=== PATIENT | female | born 1980 | race Caucasian/White ===

== ENCOUNTER 2022-07-01 13:37 | Emergency (ER) | payer OTHER ==
[2022-07-01 13:55] VITALS: TEMP 98.1
[2022-07-01] MEDS ORDERED: IBUPROFEN 400 MG TAB PO STA (14:09)
[2022-07-01 14:35] VITALS: PULSE 68; RESP 16
--- NOTE | 2022-07-01 14:54 | XR ---
EXAMINATION TYPE: XR chest 2V DATE OF EXAM: 07/01/2022 COMPARISON: CTA chest November 28, 2013 HISTORY: Cough. TECHNIQUE: Frontal and lateral views of the chest are obtained. FINDINGS: Overlying Bra strap. There is no suspicious focal air space opacity, pleural effusion, or p neumothorax seen. The cardiac silhouette size remains within normal limits. The osseous structures are intact. IMPRESSION: No acute pulmonary infiltrate.
[2022-07-01] MEDS ORDERED: dexAMETHasone 4 MG TAB PO STA (15:34)
[2022-07-01] MEDS ORDERED: AZITHROMYCIN 500 MG TAB PO STA (15:34)
--- NOTE | 2022-07-01 15:41 | ED ---
General Adult HPI - General Chief complaint: Upper Respiratory Infection Stated complaint: URI Time Seen by Provider: 07/01/22 15:15 Source: patient, RN notes reviewed, old records reviewed Mode of arrival: ambulatory Limitations: no limitations - History of Present Illness Initial comments: Patient is a 41-year-old female with past medical history remarkable for psychiatric illness, migraines who presents emergency Department complaining of a four-day history of upper history symptoms. This includes a nasal congestion, mildly productive cough. Denies any sore throat or fevers. Denies any known sick contacts. Was vaccinated. Covid. Denies any chest pain, abdominal pain, nausea, vomiting. No other acute complaints at this time. To go home Covid test was negative. Presents for further evaluation. On a side note, patient also is now out of her home Clonopin. She is requesting a short-term prescription to help her ween off as her PCP is no longer seeing patients. Denies any withdrawal symptoms. - Related Data Home Medications Medication Instructions Recorded Confirmed Levothyroxine Sodium [Levoxyl] 50 mcg PO DAILY 05/15/15 05/15/15 Montelukast Sodium [Singulair] 10 mg PO HS 05/15/15 05/15/15 Nitrofurantoin Monohyd/M-Cryst 100 mg PO Q12HR 05/15/15 05/15/15 [Macrobid] Sertraline HCl [Zoloft] 100 mg PO BID 05/15/15 05/15/15 Zolpidem Tartrate [Ambien] 10 mg PO HS 05/15/15 05/15/15 clonazePAM [KlonoPIN] 1 mg PO TID 05/15/15 05/15/15 Atorvastatin [Lipitor] 20 mg PO DAILY 07/01/22 07/01/22 Butalb/APAP/Caff 50-325-40Mg 1 - 2 tab PO Q4H PRN 07/01/22 07/01/22 [Fioricet 50-325-40] Loratadine [Claritin] 10 mg PO DAILY 07/01/22 07/01/22 Metoprolol Succinate (ER) [Toprol 50 mg PO DAILY 07/01/22 07/01/22 Xl] Omeprazole 40 mg PO DAILY 07/01/22 07/01/22 Rivaroxaban [Xarelto] 2.5 mg PO BID 07/01/22 07/01/22 buPROPion SR [Wellbutrin SR] 150 mg PO DAILY 07/01/22 07/01/22 cloNIDine HCL [Catapres] 0.1 mg PO AC-TID 07/01/22 07/01/22 Previous Rx's Medication Instructions Recorded Azithromycin [Zithromax] 250 mg PO DAILY 4 Days #4 tab 07/01/22 clonazePAM [KlonoPIN] 1 mg PO DAILY 3 Days #3 tablet 07/01/22 Allergies Allergy/AdvReac Type Severity Reaction Status Date / Time Sulfa (Sulfonamide AdvReac Nausea & Verified 07/01/22 15:23 Antibiotics) Vomiting & Diarrhea Review of Systems ROS Statement: Those systems with pertinent positive or pertinent negative responses have been documented in the HPI. Review of Systems: CONST: Denies fever EYES: Denies blurry vision ENT: Endorses nasal congestion C/V: Denies Chest pain RESP: Denies shortness of breath GI: Denies abdominal pain : Denies dysuria SKIN: Denies rash. MSK: Denies joint pain. NEURO: Denies headache ROS Other: All systems not noted in ROS Statement are negative. Past Medical History Past Medical History: Deep Vein Thrombosis (DVT) History of Any Multi-Drug Resistant Organisms: None Reported Past Surgical History: No Surgical Hx Reported Past Psychological History: Anxiety, Depression Smoking Status: Never smoker Past Alcohol Use History: Rare Past Drug Use History: None Reported General Exam - General Exam Comments Initial Comments: General: Appears in no acute distress. HEAD: Normal with no signs of head trauma. EYES: PERRLA, EOMI, conjunctiva normal, no discharge. ENT: Hearing grossly intact, normal oropharynx. RESPIRATORY: Clear breath sounds bilaterally. No wheezes, rales, or rhonchi. No hypoxia. No respiratory distress. C/V: Regular rate and rhythm. S1 and S2 auscultated, no edema, peripheral pulses 2+ and intact throughout ABD: Abd is soft, nontender, nondistended EXT: Normal range of motion, no obvious deformity SKIN: No rashes or lesions observed on exposed skin. NEURO: Alert and oriented x 4. Limitations: no limitations Course Vital Signs 07/01/22 07/01/22 13:49 14:32 Temperature 98.1 F Pulse Rate 95 68 Respiratory 18 16 Rate Blood Pressure 101/69 100/60 O2 Sat by Pulse 98 98 Oximetry Medical Decision Making - Medical Decision Making Based on the patient's presentation and physical exam, I do believe she likely is experiencing upper respiratory illness, possibly bronchitis. Vital signs are within acceptable limits. We will obtain virucide soles chest x-ray. She was in agreement this plan. Patient is negative for Covid and flu. Chest x-ray shows no acute cardiopulmonary process. I updated the patient results of her workup. We will treat her for bronchitis with azithromycin as well as a single dose of the steroid. She'll be given a p rescription for azithromycin. At her request I will also provide her 3 tablets of 1 mg Klonopin. No refills. Recommended she follow-up with a new PCP. I will give her contact information. She was in agreement with this plan. I will provide the patient with a prescription for azithromycin, Klonopin. I instructed the patient to follow up with their PCP in the next 1-3 days. I expl ained that the patient should return to the emergency department if they experience any worsening symptoms. Strict return precautions were discussed with the patient. The patient expressed understanding of these instructions. I answered all questions that the patient had. The patient was discharged home in good condition with their prescriptions and follow up information. - Lab Data Lab Results 07/01/22 07/01/22 Range/Units 14:32 14:32 Coronavirus (PCR) Not Detected (Not Detectd) Influenza Type A RNA Not Detected (Not Detectd) Influenza Type B (PCR) Not Detected (Not Detectd) Disposition Clinical Impression: Bronchitis, URI (upper respiratory infection) Disposition: HOME SELF-CARE Condition: Good Instructions (If sedation given, give patient instructions): Upper Respiratory Infection (ED) Prescriptions: clonazePAM [KlonoPIN] 1 mg PO DAILY 3 Days #3 tablet Azithromycin [Zithromax] 250 mg PO DAILY 4 Days #4 tab Is patient prescribed a controlled substance at d/c from ED?: No Referrals: None,Stated [Primary Care Provider] - 1-2 days Hanna Lopes MD [REFERRING] - 1-2 days Damaso Quiroz III, MD [STAFF PHYSICIAN] - 1-2 days Esther Santillan DO [REFERRING] - 1-2 days Yenny Adhikari MD [STAFF PHYSICIAN] - 1-2 days Time of Disposition: 15:35
[2022-07-01 16:12] VITALS: BP 120/60
== END 2022-07-01 16:12 | disposition home or self-care (01) ==
LOC: EC 13:37
DX: J06.9 Acute upper respiratory infection, unspecified (principal); I82.409 Acute embolism and thrombosis of unspecified deep veins of unspecified lower extremity; Z20.822 Contact with and (suspected) exposure to COVID-19; F32.A Depression, unspecified; F41.9 Anxiety disorder, unspecified; Z88.2 Allergy status to sulfonamides; Z79.01 Long term (current) use of anticoagulants; Z79.899 Other long term (current) drug therapy
CPT/HCPCS: 87502; 87635; 71046; 99283; J8540

== ENCOUNTER → 2022-07-09 | Outpatient (CLI) | payer OTHER ==
--- NOTE | 2022-07-09 16:09 | MR ---
EXAMINATION TYPE: MR lumbar spine wo con DATE OF EXAM: 07/09/2022 COMPARISON: NONE HISTORY: Low back pain into buttocks. Intervertebral disc degeneration. TECHNIQUE: Multiplanar, multisequence imaging of the lumbar spine is performed without IV contrast. FINDINGS: Sagittal images of the lumbar spine show vertebral body heights and alignment to appear sat isfactory. Multilevel disc desiccation with disc space heights are fairly well maintained. The conus medullaris is normal in position and signal ending inferior L1 level. The bone marrow signal intens ity is within normal limits. Axial images show T12-L1 and L1-L2 levels to appear within normal limits. Axial images at L2-L3 level shows mild broad-based posterior disc protrusion minimally effaces the an terior thecal sac. Patent bilateral neural foramina. Axial images at L3-L4 level shows mild/moderate broad-based posterior disc protrusion mildly effaces the anterior thecal sac. Patent bilateral neural foramina. Axial images at L4-L5 level show annular tear with increased signal posteriorly. No significant disc herniation. Bilateral neural foramen are patent. Axial images at L5-S1 level shows tiny central disc protrusion. There is mild facet arthropathy and l igament flavum hypertrophy bilaterally. Spinal canal is preserved. Bilateral neural foramina are morocho nt. Paraspinal muscle bulk is maintained. IMPRESSION: Mild multilevel degenerative changes in the mid to lower lumbar spine as detailed above w ith greatest findings noted at L3-L4 level.
== END | disposition home or self-care (01) ==
LOC: RADMRIMAIN 15:30
PROVIDERS: ATTEND Psychiatry & Neurology Neurology
DX: M47.817 Spondylosis without myelopathy or radiculopathy, lumbosacral region (principal); M51.27 Other intervertebral disc displacement, lumbosacral region; M51.37 Other intervertebral disc degeneration, lumbosacral region
CPT/HCPCS: 72148

== ENCOUNTER 2023-01-12 01:41 | Inpatient (IN) | payer OTHER ==
[2023-01-12] MEDS ORDERED: guaiFENesin-DM 600/30MG 1 EACH TAB.ER.12H PO ONE (02:11)
--- NOTE | 2023-01-12 02:17 | ED ---
SOB HPI - General Chief Complaint: Shortness of Breath Stated Complaint: SYNCOPE Time Seen by Provider: 01/12/23 01:52 Source: patient, RN notes reviewed Mode of arrival: ambulatory Limitations: no limitations - History of Present Illness Initial Comments: This is a 42-year-old female who presents to the emergency department for coughing, shortness of breath, and a syncopal episode. States that over the last 2 weeks, she has had a cough that seems to be progressing. She initially attributed this to allergies. She had a telephone visit with her primary care provider who started her on cough medication and a Medrol Dosepak, which she finished over a week ago. States that this is usually effective for her, however it has not improved her symptoms whatsoever at this point. When she was on the toilet tonight, she was coughing and subsequently had a syncopal episode. States that she woke up on the floor. Denies hitting her head. This has never happened to her in the past. Feels like whenever she is walking, she has to stop and catch her breath. Also feels very fatigued. Denies any chest pain. Also denies any fevers, congestion, or other upper respiratory symptoms. Denies any fevers, chills, sore throat, chest pain, palpitations, abdominal pain, nausea, vomiting, diarrhea, back pain, or headaches. MD Complaint: shortness of breath, cough Onset/Timin -: week(s) - Related Data Home Medications Medication Instructions Recorded Confirmed Levothyroxine Sodium [Levoxyl] 50 mcg PO DAILY 05/15/15 01/12/23 Montelukast Sodium [Singulair] 10 mg PO DAILY 05/15/15 01/12/23 Nitrofurantoin Monohyd/M-Cryst 100 mg PO VALLEJO 05/15/15 01/12/23 [Macrobid] Sertraline HCl [Zoloft] 200 mg PO DAILY 05/15/15 01/12/23 Zolpidem Tartrate [Ambien] 10 mg PO HS PRN 05/15/15 01/12/23 Atorvastatin [Lipitor] 20 mg PO DAILY 07/01/22 01/12/23 Butalb/APAP/Caff 50-325-40Mg 1 - 2 tab PO Q4H PRN 07/01/22 01/12/23 [Fioricet 50-325-40] Loratadine [Claritin] 10 mg PO DAILY 07/01/22 01/12/23 Omeprazole 40 mg PO DAILY 07/01/22 01/12/23 Rivaroxaban [Xarelto] 2.5 mg PO DIRECTED 07/01/22 01/12/23 buPROPion SR [Wellbutrin SR] 150 mg PO DAILY 07/01/22 01/12/23 cloNIDine HCL [Catapres] 0.1 mg PO AC-TID 07/01/22 01/12/23 Benzonatate [Tessalon Perles] 100 mg PO TID PRN 01/12/23 01/12/23 Cyclobenzaprine [Flexeril] 10 mg PO TID PRN 01/12/23 01/12/23 Doxycycline Hyclate 100 mg PO BID PRN 01/12/23 01/12/23 Fluticasone Nasal Porter [Flonase 1 - 2 spray EA NOSTRIL DAILY PRN 01/12/23 01/12/23 Nasal Porter] Metoprolol Succinate (ER) [Toprol 25 mg PO DAILY 01/12/23 01/12/23 Xl] Naproxen [Naprosyn] 500 mg PO BID PRN 01/12/23 01/12/23 clonazePAM [KlonoPIN] 1 mg PO BID 01/12/23 01/12/23 norgestimate-ethinyl estradioL 1 tab PO DAILY 01/12/23 01/12/23 [Marli 0.25-0.035 mg Tablet] Allergies Allergy/AdvReac Type Severity Reaction Status Date / Time Sulfa (Sulfonamide AdvReac Nausea & Verified 01/12/23 08:18 Antibiotics) Vomiting & Diarrhea Review of Systems ROS Statement: Those systems with pertinent positive or pertinent negative responses have been documented in the HPI. ROS Other: All systems not noted in ROS Statement are negative. Past Medical History Past Medical History: Deep Vein Thrombosis (DVT) History of Any Multi-Drug Resistant Organisms: None Reported Past Surgical History: No Surgical Hx Reported Past Psychological History: Anxiety, Depression Smoking Status: Never smoker Past Alcohol Use History: Rare Past Drug Use History: None Reported - Past Family History Father Family Medical History: Cancer, CVA/TIA, Hyperlipidemia, Hypertension, Myocardial Infarction ([place]) Mother Family Medical History: Cancer, Hyperlipidemia, Hypertension General Exam Limitations: no limitations General appearance: alert, other (Talking in 2-3 word sentences) Head exam: Present: atraumatic, normocephalic, normal inspection Respiratory exam: Present: accessory muscle use. Absent: wheezes, rales, rhonchi, chest wall tenderness Cardiovascular Exam: Present: normal rhythm, tachycardia Neurological exam: Present: alert, oriented X3, CN II-XII intact Psychiatric exam: Present: normal affect, normal mood Skin exam: Present: warm, dry, intact, normal color. Absent: rash Course Vital Signs 01/12/23 01/12/23 01/12/23 01:43 04:26 06:08 Temperature 98 F Pulse Rate 120 H 98 Respiratory 19 18 22 Rate Blood Pressure 104/74 115/70 O2 Sat by Pulse 95 98 Oximetry 01/12/23 01/12/23 01/12/23 06:09 07:34 09:00 Temperature Pulse Rate 98 68 112 H Respiratory 18 18 18 Rate Blood Pressure 110/78 122/69 116/83 O2 Sat by Pulse 98 99 96 Oximetry 01/12/23 01/12/23 01/12/23 10:00 11:44 12:22 Temperature 97.7 F Pulse Rate 115 H 97 96 Respiratory 20 18 18 Rate Blood Pressure 110/91 114/74 107/62 O2 Sat by Pulse 95 95 95 Oximetry Medical Decision Making - Medical Decision Making This is a 42-year-old female who presents to the emergency department for coughing and shortness of breath. Was pt. sent in by a medical professional or institution? @ -No Did you speak to anyone other than the patient for history? @ -No Did you review nursing and triage notes? @ -Yes, and I agree, it is accurate with regards to the patient's symptoms. Were old charts reviewed? @ -No Differential Diagnosis? @ -Differential Dyspnea: Coronary syndrome, arrhythmia, tamponade, asthma, COPD, pulmonary embolism, pneumonia, pneumothorax, pulmonary effusion, anaphylaxis, diabetic ketoacidosis, flailed chest, pulmonary contusion, diaphragmatic rupture, anemia, neuromuscular, this is not meant to be an all-inclusive list. EKG interpreted by me (3pts min.)? @ -EKG interpreted by me: Sinus tachycardia. Ventricular rate 139 bpm, MA interval 132 ms, QRS duration 74 ms, QTC 410 ms. X-rays interpreted by me (1pt min.)? @ -Chest x-ray obtained, my interpretation identifies no localized consolidations or infiltrates. CT interpreted by me (1pt min.)? @ -Not viewable at the time of admission U/S interpreted by me (1pt. min.)? @ -Not obtained What testing was considered but not performed? (CT, X-rays, U/S, labs)? Why? @ -None What meds were considered but not given? Why? @ -None Did you discuss the management of the patient with other professionals? @ -Dr. West, ED attending, discussed case with Dr. Joshi. Did you reconcile home meds? @ -No Was smoking cessation discussed for >3mins.? @ -No Was critical care preformed (if so, how long)? @ -No Were there social determinants of health that impacted care today? How? (Homelessness, low income, unemployed, alcoholism, drug addiction, transportation, low edu. Level, literacy, decrease access to med. care, retirement, rehab)? @ -No Was there de-escalation of care discussed even if they declined? (Discuss DNR or withdrawal of care, Hospice)? @ -No What co-morbidities impacted this encounter? (DM, HTN, Smoking, COPD, CAD, Cancer, CVA, Hep., AIDS, mental health diagnosis, sleep apnea, morbid obesity)? @ -Hx of DVT Was patient admitted / discharged? @ -Admitted. Patient continued to be tachycardic in the emergency department. She is also noted to be talking in 2-3 word sentences and is very breathy during conversation. She was given a dose of Mucinex, which did seem to improve her coughing to some extent. Lab work obtained revealing leukocytosis of 19.5, an elevated d-dimer of 3.6, and an elevated troponin of 0.036. CTA of the chest was subsequently obtained. When I discussed the elevated d-dimer with the noemy ent, states that she had a DVT of the left leg in 2012. She was started on a heparin drip based on the elevated troponin. At the time of admission, the official CTA read was pending. However, there was concern for a pulmonary embolus due to the tachycardia, shortness of breath, and elevated d-dimer with elevated troponin. Case discussed with ED attending, Dr. West. He will give official report to the patient's PCP, Dr. Joshi for admission and follow up on the CTA results. Undiagnosed new problem with uncertain prognosis? @ -None Drug Therapy requiring intensive monitoring for toxicity (Heparin, Nitro, Insulin, Cardizem)? @ -Heparin Were any procedures done? @ -None Diagnosis/symptom? @ -Difficulty breathing, PE, Syncope Acute, or Chronic, or Acute on Chronic? @ -Acute Uncomplicated (without systemic symptoms) or Complicated (systemic symptoms)? @ -Complicated Side effects of treatment? @ -None Exacerbation, Progression, or Severe Exacerbation] @ -Not applicable Poses a threat to life or bodily function? @ -Yes This case was discussed in detail with the attending ED physician, Dr. West. Presentation, findings, and treatment plan discussed in detail as well. - Lab Data Result diagrams: 01/12/23 02:25 01/12/23 02:27 Lab Results 01/12/23 01/12/23 01/12/23 Range/Units 02:25 02:27 02:27 WBC 19.5 H (3.8-10.6) k/uL RBC 4.27 (3.80-5.40) m/uL Hgb 12.9 (11.4-16.0) gm/dL Hct 40.4 (34.0-46.0) % MCV 94.5 (80.0-100.0) fL MCH 30.1 (25.0-35.0) pg MCHC 31.9 (31.0-37.0) g/dL RDW 14.7 (11.5-15.5) % Plt Count 209 (150-450) k/uL MPV 8.2 Neutrophils % 75 % Lymphocytes % 16 % Monocytes % 5 % Eosinophils % 3 % Basophils % 0 % Neutrophils # 14.7 H (1.3-7.7) k/uL Lymphocytes # 3.1 (1.0-4.8) k/uL Monocytes # 0.9 (0-1.0) k/uL Eosinophils # 0.5 (0-0.7) k/uL Basophils # 0.0 (0-0.2) k/uL PT 10.0 (9.0-12.0) sec INR 0.9 (<1.2) APTT 22.4 (22.0-30.0) sec D-Dimer 3.66 H (<0.60) mg/L FEU Sodium 138 (137-145) mmol/L Potassium 4.4 (3.5-5.1) mmol/L Chloride 110 H (98-107) mmol/L Carbon Dioxide 20 L (22-30) mmol/L Anion Gap 8 mmol/L BUN 17 (7-17) mg/dL Creatinine 0.85 (0.52-1.04) mg/dL Est GFR (CKD-EPI)AfAm >90 (>60 ml/min/1.73 sqM) Est GFR (CKD-EPI)NonAf 85 (>60 ml/min/1.73 sqM) Glucose 106 H (74-99) mg/dL Lactic Ac Sepsis Rflx Plasma Lactic Acid Miguel Angel (0.7-2.0) mmol/L Calcium 7.3 L (8.4-10.2) mg/dL Total Bilirubin 0.3 (0.2-1.3) mg/dL AST 28 (14-36) U/L ALT 15 (4-34) U/L Alkaline Phosphatase 147 H (38-126) U/L Troponin I (0.000-0.034) ng/mL Total Protein 5.5 L (6.3-8.2) g/dL Albumin 2.8 L (3.5-5.0) g/dL Influenza Type A (PCR) (Not Detectd) Influenza Type B (PCR) (Not Detectd) RSV (PCR) (Not Detectd) SARS-CoV-2 (PCR) (Not Detectd) 01/12/23 01/12/23 01/12/23 Range/Units 02:27 02:27 02:28 WBC (3.8-10.6) k/uL RBC (3.80-5.40) m/uL Hgb (11.4-16.0) gm/dL Hct (34.0-46.0) % MCV (80.0-100.0) fL MCH (25.0-35.0) pg MCHC (31.0-37.0) g/dL RDW (11.5-15.5) % Plt Count (150-450) k/uL MPV Neutrophils % % Lymphocytes % % Monocytes % % Eosinophils % % Basophils % % Neutrophils # (1.3-7.7) k/uL Lymphocytes # (1.0-4.8) k/uL Monocytes # (0-1.0) k/uL Eosinophils # (0-0.7) k/uL Basophils # (0-0.2) k/uL PT (9.0-12.0) sec INR (<1.2) APTT (22.0-30.0) sec D-Dimer (<0.60) mg/L FEU Sodium (137-145) mmol/L Potassium (3.5-5.1) mmol/L Chloride (98-107) mmol/L Carbon Dioxide (22-30) mmol/L Anion Gap mmol/L BUN (7-17) mg/dL Creatinine (0.52-1.04) mg/dL Est GFR (CKD-EPI)AfAm (>60 ml/min/1.73 sqM) Est GFR (CKD-EPI)NonAf (>60 ml/min/1.73 sqM) Glucose (74-99) mg/dL Lactic Ac Sepsis Rflx Plasma Lactic Acid Miguel Angel 3.8 H* (0.7-2.0) mmol/L Calcium (8.4-10.2) mg/dL Total Bilirubin (0.2-1.3) mg/dL AST (14-36) U/L ALT (4-34) U/L Alkaline Phosphatase (38-126) U/L Troponin I 0.036 H* (0.000-0.034) ng/mL Total Protein (6.3-8.2) g/dL Albumin (3.5-5.0) g/dL Influenza Type A (PCR) Not Detected (Not Detectd) Influenza Type B (PCR) Not Detected (Not Detectd) RSV (PCR) Not Detected (Not Detectd) SARS-CoV-2 (PCR) Not Detected (Not Detectd) 01/12/23 Range/Units 03:42 WBC (3.8-10.6) k/uL RBC (3.80-5.40) m/uL Hgb (11.4-16.0) gm/dL Hct (34.0-46.0) % MCV (80.0-100.0) fL MCH (25.0-35.0) pg MCHC (31.0-37.0) g/dL RDW (11.5-15.5) % Plt Count (150-450) k/uL MPV Neutrophils % % Lymphocytes % % Monocytes % % Eosinophils % % Basophils % % Neutrophils # (1.3-7.7) k/uL Lymphocytes # (1.0-4.8) k/uL Monocytes # (0-1.0) k/uL Eosinophils # (0-0.7) k/uL Basophils # (0-0.2) k/uL PT (9.0-12.0) sec INR (<1.2) APTT (22.0-30.0) sec D-Dimer (<0.60) mg/L FEU Sodium (137-145) mmol/L Potassium (3.5-5.1) mmol/L Chloride (98-107) mmol/L Carbon Dioxide (22-30) mmol/L Anion Gap mmol/L BUN (7-17) mg/dL Creatinine (0.52-1.04) mg/dL Est GFR (CKD-EPI)AfAm (>60 ml/min/1.73 sqM) Est GFR (CKD-EPI)NonAf (>60 ml/min/1.73 sqM) Glucose (74-99) mg/dL Lactic Ac Sepsis Rflx Y Plasma Lactic Acid Miguel Angel (0.7-2.0) mmol/L Calcium (8.4-10.2) mg/dL Total Bilirubin (0.2-1.3) mg/dL AST (14-36) U/L ALT (4-34) U/L Alkaline Phosphatase (38-126) U/L Troponin I (0.000-0.034) ng/mL Total Protein (6.3-8.2) g/dL Albumin (3.5-5.0) g/dL Influenza Type A (PCR) (Not Detectd) Influenza Type B (PCR) (Not Detectd) RSV (PCR) (Not Detectd) SARS-CoV-2 (PCR) (Not Detectd) - Radiology Data Radiology results: report reviewed, image reviewed Disposition Clinical Impression: Dyspnea, Elevated troponin, Tachycardia, Syncope, Pulmonary embolus Disposition: ADMITTED IP TO THIS HOSP
[2023-01-12] MEDS ORDERED: SODIUM CHLORIDE 0.9% 1,000 ML IV STA (02:39)
[2023-01-12 03:10] LABS: ALT 15 U/L (4-34); AST 28 U/L (14-36); African American GFR (CKD) >90 (>60 ml/min/1.73 sqM); Albumin 2.8 g/dL (3.5-5.0); Alkaline Phosphatase 147 U/L (38-126); Anion Gap 8 mmol/L; Blood Urea Nitrogen 17 mg/dL (7-17); Calcium 7.3 mg/dL (8.4-10.2); Carbon Dioxide 20 mmol/L (22-30); Chloride 110 mmol/L (98-107); Glucose 106 mg/dL (74-99); Non-African American GFR(CKD) 85 (>60 ml/min/1.73 sqM); Potassium 4.4 mmol/L (3.5-5.1); Sodium 138 mmol/L (137-145); Total Bilirubin 0.3 mg/dL (0.2-1.3); Total Protein 5.5 g/dL (6.3-8.2)
[2023-01-12 03:10] LABS: Basophils % (A) 0 %; Eosinophils # (A) 0.5 k/uL (0-0.7); Eosinophils % (A) 3 %; HCT 40.4 % (34.0-46.0); HGB 12.9 gm/dL (11.4-16.0); Lymphocytes # (A) 3.1 k/uL (1.0-4.8); Lymphocytes % (A) 16 %; MCH 30.1 pg (25.0-35.0); MCHC 31.9 g/dL (31.0-37.0); MCV 94.5 fL (80.0-100.0); Mean Platelet Volume 8.2; Monocytes # (A) 0.9 k/uL (0-1.0); Monocytes % (A) 5 %; Neutrophils # (A) 14.7 k/uL (1.3-7.7); Neutrophils % (A) 75 %; Platelet Count 209 k/uL (150-450); RBC 4.27 m/uL (3.80-5.40); RDW 14.7 % (11.5-15.5); WBC 19.5 k/uL (3.8-10.6)
[2023-01-12 03:18] LABS: INR 0.9 (<1.2); Partial Thromboplastin Time 22.4 sec (22.0-30.0)
[2023-01-12] MEDS ORDERED: HEPARIN SODIUM 1,000 UN/ML (10ML VL) IV PRN (03:56)
[2023-01-12] MEDS ORDERED: HEPARIN SODIUM 1,000 UN/ML (10ML VL) IV ONE ×2 (03:56→13:29)
[2023-01-12] MEDS ORDERED: NALOXONE 0.4 MG/ML 1 ML VIAL IV PRN (03:57)
[2023-01-12] MEDS ORDERED: ONDANSETRON 4 MG/2 ML VIAL IVP PRN (03:57)
[2023-01-12] MEDS ORDERED: ACETAMINOPHEN TAB 325 MG TAB PO PRN (03:57)
--- NOTE | 2023-01-12 04:05 | XR ---
EXAM: XR Chest, 2 Views CLINICAL HISTORY: ITS.REASON XR Reason: shortness of breathe TECHNIQUE: Frontal and lateral views of the chest. COMPARISON: No relevant prior studies available. FINDINGS: Lungs: No consolidation or mass. Pleural space: No effusion. Heart: No cardiomegaly. Bones/joints: No acute findings. IMPRESSION: No acute cardiopulmonary process.
[2023-01-12] MEDS: HEPARIN SOD,PORK IN 0.45% NACL 25,000 UNIT in 0.45% NACL 1 250ML.BAG IV SCH (04:29)
--- NOTE | 2023-01-12 07:32 | CT ---
EXAMINATION TYPE: CT chest angio for PE DATE OF EXAM: 01/12/2023 COMPARISON: Radiographs same date HISTORY: 42-year-old female difficulty breathing, shortness of breath, tachycardia, elevated d-dimer, cough TECHNIQUE: Contiguous axial scanning of the chest performed with IV Contrast, patient injected with 1 00 mL of Isovue 370. Coronal/sagittal MIP reconstructions performed. CT DLP: 334 mGycm Automated exposure control for dose reduction was used. FINDINGS: Heart normal size without pericardial effusion. There is some flattening of the interventricular sept um and slight reflux of contrast into the IVC. Aorta normal caliber with a commensurate vessel branching anatomy. Borderline sized AP window lymph node at 1 cm. 1.8 cm enlarged right hilar lymph node. The exam is positive for bilateral pulmonary emboli including a saddle embolus. Fairly moderate burde n of bilateral pulmonary emboli extending throughout lobar and some segmental branches. Some scattered groundglass changes in the upper to mid lungs. More confluent airspace disease posteri or left upper lobe. No pleural effusion.. Visualized upper abdomen shows no gross abnormality. Bones: Osseous destructive process. IMPRESSION: 1. EXAM POSITIVE FOR BILATERAL PULMONARY EMBOLI WITH MODERATE OVERALL BURDEN INCLUDING THE PRESENCE O F A NONOCCLUSIVE SADDLE EMBOLUS. 2. HOWEVER, CT FINDINGS ARE CONCERNING FOR DEVELOPING RIGHT HEART STRAIN. 3. SCATTERED GROUNDGLASS CHANGES IN THE UPPER TO MID LUNGS INCLUDING MORE CONFLUENT AIRSPACE DISEASE POSTERIOR LEFT UPPER LOBE. THESE COULD REPRESENT AREAS OF DEVELOPING PULMONARY INFARCT VERSUS MULTIFO NABIL PNEUMONIA. CLINICALLY CORRELATE. 4. 3 MONTH FOLLOW-UP CT TO REASSESS THE ENLARGED 1.8 CM RIGHT HILAR LYMPH NODE, POSSIBLY REACTIVE. Critical findings called to Dr. Felder in the ER at 7:25am.
[2023-01-12] MEDS ORDERED: CYCLOBENZAPRINE 10 MG TAB PO PRN (09:31)
--- NOTE | 2023-01-12 10:58 | CA ---
Transthoracic Echo Report Name: Cely Delatorre Age: 42 Gender: F : 1980 Exam Date: 01/12/2023 08:18 Exam Location: [facility] Ht (in): 60 Wt (lb): 165 Ordering Physician: Uri Felder MD Attending/Referring Phys: [id number], Emerita Material Handling Technician Sara Bowman RDCS Procedure CPT: Indications: PE Cardiac Hx: Technical Quality: Fair Contrast 1: Total Dose (mL): Contrast 2: Total Dose (mL): MEASUREMENTS (Male / Female) Normal Values 2D ECHO LV Diastolic Diameter PLAX 3.2 cm 4.2 - 5.9 / 3.9 - 5.3 cm LV Systolic Diameter PLAX 2.7 cm IVS Diastolic Thickness 1.0 cm 0.6 - 1.0 / 0.6 - 0.9 cm LVPW Diastolic Thickness 1.0 cm 0.6 - 1.0 / 0.6 - 0.9 cm LV Relative Wall Thickness 0.6 RV Internal Dim ED PLAX 3.4 cm LA Systolic Diameter LX 2.9 cm 3.0 - 4.0 / 2.7 - 3.8 cm LV Diastolic Volume MOD BP 27.6 cm??? 67 - 155 / 56 - 104 cm??? LV Systolic Volume MOD BP 21.6 cm??? 22 - 58 / 19 - 49 cm??? LV Ejection Fraction MOD BP 21.5 % >= 55 % LV Diastolic Volume MOD 4C 32.3 cm??? LV Systolic Volume MOD 4C 20.3 cm??? LV Ejection Fraction MOD 4C 37.0 % LV Diastolic Length 4C 5.6 cm LV Systolic Length 4C 5.9 cm LV Diastolic Volume MOD 2C 22.7 cm??? LV Systolic Volume MOD 2C 17.5 cm??? LV Ejection Fraction MOD 2C 22.9 % LV Diastolic Length 2C 5.3 cm LV Systolic Length 2C 4.2 cm M-MODE IVS Diastolic Thickness MM 0.9 cm 0.6 - 1.0 / 0.6 - 0.9 cm Aortic Root Diameter MM 2.9 cm MV E Point Septal Separation 0.6 cm AV Cusp Separation MM 1.8 cm DOPPLER MV Area PHT 5.1 cm??? Mitral E Point Velocity 51.3 cm/s Mitral A Point Velocity 54.5 cm/s Mitral E to A Ratio 0.9 MV Deceleration Time 149.5 ms MV E' Velocity 7.1 cm/s Mitral E to MV E' Ratio 7.3 TR Peak Velocity 358.1 cm/s TR Peak Gradient 51.3 mmHg Right Ventricular Systolic Press 55.0 mmHg FINDINGS Left Ventricle Left ventricular ejection fraction is estimated at 45-50 %. Small left ventricular cavity. Left ventricular wall thickness normal. Ventricular septum flattening in systole and diastole Right Ventricle Mild right ventricular dilatation. Moderately reduced right ventricular global systolic function. Severe pulmonary hypertension. Right ventricular systolic pressure estimated at 55 mm hg. Right Atrium Normal right atrial size. Left Atrium Normal left atrial size. Mitral Valve Structurally normal mitral valve. No mitral stenosis, regurgitation or prolapse. Aortic Valve Aortic valve not well visualized. No aortic valve stenosis or regurgitation. Tricuspid Valve Structurally normal tricuspid valve. [id number] tricuspid regurgitation. Pulmonic Valve Pulmonic valve not well visualized. Pericardium Normal pericardium. No pericardial effusion. Aorta Normal size aortic root and proximal ascending aorta. CONCLUSIONS Left ventricle size is normal ejection fraction is about 50%. There is significant right ventricular enlargement with flattening of the intraventricular septum both in systole and diastole suggestive of pressure and volume overload. Right-sided pressures are elevated at 55 mmHg. Mild mitral and moderate tricuspid regurgitation no pericardial effusion. There is evidence of RV enlargement with strain Previewed by: Dr. Jeannette Reynolds MD (Electronically Signed) Final Date: 12 Jan 2023 10:57
[2023-01-12] MEDS: cloNIDine HCL 0.1 MG TAB PO SCH ×2 (12:19→17:22)
[2023-01-12] MEDS ORDERED: fentaNYL (PF) 50 MCG/ML 2 ML AMP ONE (13:17)
[2023-01-12] MEDS ORDERED: LIDOCAINE 1% INJ 10MG/ML (20 ML MDV) ONE (13:17)
[2023-01-12] MEDS ORDERED: SODIUM CHLORIDE 0.9% 500 ML 500 ML IV ONE (13:20)
[2023-01-12] MEDS: fentaNYL (PF) 50 MCG/ML 2 ML AMP IV ONE ×2 (13:24→14:23)
[2023-01-12] MEDS: MIDAZOLAM 2 MG/2 ML VIAL IV ONE ×2 (13:24→14:23)
[2023-01-12] MEDS ORDERED: LIDOCAINE 1% INJ 10MG/ML (20 ML MDV) SQ ONE (13:24)
[2023-01-12] MEDS ORDERED: HEPARIN SODIUM,PORCINE 30 ML 30 ML ONE (14:16)
[2023-01-12] MEDS ORDERED: IOPAMIDOL-370 100ML BTL INJ ONE ×2 (14:22→14:50)
--- NOTE | 2023-01-12 14:58 | IR ---
EXAMINATION TYPE: IR mech remov intraluminal mat HISTORY: Fluoroscopy time Impression: 1. Fluoroscopy support provided to the referring physician. DAP 25.4 Gycm2.
[2023-01-12 15:52] LABS: Glucose,Whole Blood 109 mg/dL (70-110)
--- NOTE | 2023-01-12 17:16 | US ---
EXAMINATION TYPE: US venous doppler duplex LE BI DATE OF EXAM: 01/12/2023 4:37 PM COMPARISON: LLE venous 05/15/2015. CLINICAL INDICATION: Female, 42 years old with history of PE, hx of DVTs; PE, History of DVT SIDE PERFORMED: bilateral TECHNIQUE: The lower extremity deep venous system is examined utilizing real time linear array sonog elvis with graded compression, doppler sonography and color-flow sonography. VESSELS IMAGED: Common Femoral Vein Deep Femoral Vein Greater Saphenous Vein * Femoral Vein Popliteal Vein Small Saphenous Vein * Proximal Calf Veins (* superficial vessels) Right Leg: +positive for DVT right femoral vein distal extending into popliteal vein. unable to visu maik groin vessels due to recent surgery and bandage Left Leg: *positive for DVT, thready flow with partial compression left EIV extending into popliteal vein Grayscale, color doppler, spectral doppler imaging performed of the deep veins of the lower bilateral lower extremities. IMPRESSION: Suboptimal study but acute DVT is present bilaterally and visualized portions longer in length and the left lower extremity versus right as detailed above.
[2023-01-12] MEDS: clonazePAM 1 MG TAB PO SCH (20:14)
[2023-01-12] MEDS: HYDROcodone/APAP 5-325MG 1 EACH TAB PO PRN (21:03)
--- NOTE | 2023-01-12 22:27 | HP ---
HISTORY AND PHYSICAL She is currently in the emergency room. CHIEF COMPLAINT: Cough and shortness of breath for several days. HISTORY OF PRESENT ILLNESS: This is the first known admission for this 42-year-old female. She has had bronchitis and cough for a week or 2. She came to the office where she was treated, but still had difficulty. She has had no chest pain, fever, chills, purulent sputum production, hemoptysis, etc. She came to the emergency room, where she was found to have elevated D-dimer and troponin. CTA of the chest is pending. Before she came in, she felt as though she was going to pass out. She thought that her cough was due to allergic bronchitis. 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 She was recently recommended that she could stop these. She has had a little bit of swelling in the left leg, but nothing significant. REVIEW OF SYSTEMS: She has had no neurologic problems, change in vision or hearing, history of hypertension, heart disease, murmurs, rheumatic fever, orthopnea, PND, abdominal pain, nausea, vomiting, melena, hematochezia, jaundice, hepatitis, cirrhosis, renal failure, hematuria, incontinence, dysuria, diabetes, etc. Past medical history, family history and personal and social histories reveal that she is allergic to pollen, nothing else. MEDICATIONS: 1. Tessalon Perles. 2. Flexeril. 3. Clonidine 0.1 three times a day. 4. Omeprazole 40 mg once a day. 5. control. 6. Naproxen. 7. Fioricet. 8. Montelukast. 9. Levothyroxine. 10.Sertraline. 11.Zolpidem. 12.Klonopin. 13.Dicyclomine. 14.Vitamin D3. 15.Atorvastatin 20 mg at bedtime. 16.Metoprolol 50 mg once a day. 17.Wellbutrin 150 mg once a day. Remainder of her history is not significant. She had a grandfather who suddenly dropped and no autopsy was performed. She does not know of any other people in her family that have had DVTs or PEs. She has never been checked for hypercoagulable state. She does not smoke. PHYSICAL EXAMINATION: VITAL SIGNS: Blood pressure 124/84 with a pulse of 126, respirations of 34, and she is afebrile. GENERAL: She appeared to be in no acute distress. SKIN: Color was normal. Skin was warm and dry. LYMPHATICS: Lymph nodes are not enlarged. HEAD, EARS, EYES, NOSE, MOUTH AND THROAT: Normal. NECK: Neck veins not distended. Thyroid is not enlarged. CHEST: Clear. There are no rales or rhonchi. There are no rubs. CARDIAC: Demonstrates normal sinus rhythm with no murmurs or extra sounds. ABDOMEN: Soft and nontender. EXTREMITIES: Normal. NEUROLOGICAL: She is intact. ASSESSMENT: She is admitted to the hospital with diagnosis of: 1. Chest pain. 2. Elevated troponin. 3. Elevated D-dimer. 4. History of deep venous thrombosis in the left lower extremity. PLAN: 1. Bedrest. 2. IV fluids. 3. Anticoagulate. 4. Await results of CTA. 5. Consult Cardiology. 6. Doppler of lower extremities. 7. Screen for a hypercoagulable state. MMODL / IJN: [id number] /
--- NOTE | 2023-01-12 23:16 | P.PCN ---
Description of Procedure: PROCEDURES PERFORMED: Right heart catheterization, Pulmonary arterial thrombectomy with Inari catheter, pulmonary angiogram INDICATION: Submassive PE with right heart strain CONSENT:I have discussed the risks, benefits and alternative therapies for the above-mentioned procedure and for both sedation/analgesia as well as necessary b lood product administration, if indicated, as they pertain to this patient. The patient has indicated understanding and acceptance of the risks and procedures discussed. PROCEDURE: After the risks, benefits and alternatives of the above mentioned procedure explained in detail with the patient, informed consent was obtained. Patient was taken to the catheterization lab and prepped and draped in usual fashion. 1% lidocaine was used to anesthetize the right femoral area. A 7- Yoruba sheath was placed in the right femoral vein using modified Seldinger technique and ultrasound guidance. Next a 7Fr [place] Jacquie catheter was advanced into the left pulmonary artery. A 0.018 V18 wire was advanced and used to exchange for a FR4 which was then exchanged for a 0.035 Amplatz wire and redirected into the right pulmonary artery. Next the Inari sheath was exchanged for the 7Fr sheath. Next the Inari catheter was inserted into the right main strem bronchus and 4 aspirations were performed. The Inari catheter was then moved to the left main stem and aspiration thrombectomy was again performed. The Inari catheter was then removed. The Sheath was removed and a Z stitch was placed and pressure held with hemostasis achieved. The patient tolerated the procedure well. Patient was transported back to the post catheterization holding area in stable condition. Conscious Sedation: Patient was monitored under the direct supervision of myself for conscious sedation using Versed and fentanyl for a total duration of 60 minutes HEMODYNAMICS: PA: 67/18 (39) FINAL IMPRESSION: 1. Pulmonary arterial pressure 2. S/p Inari thrombectomy bilateral pulmonary arteries
[2023-01-13] MEDS: BENZONATATE 100 MG CAP PO PRN ×3 (00:14→20:43)
[2023-01-13 02:52] LABS: Basophils % (A) 0 %; Eosinophils # (A) 0.4 k/uL (0-0.7); Eosinophils % (A) 4 %; HCT 34.5 % (34.0-46.0); Lymphocytes # (A) 2.9 k/uL (1.0-4.8); Lymphocytes % (A) 30 %; MCH 30.4 pg (25.0-35.0); MCHC 31.9 g/dL (31.0-37.0); MCV 95.1 fL (80.0-100.0); Mean Platelet Volume 8.2; Monocytes # (A) 0.4 k/uL (0-1.0); Monocytes % (A) 4 %; Neutrophils % (A) 61 %; Platelet Count 172 k/uL (150-450); RBC 3.63 m/uL (3.80-5.40); RDW 14.4 % (11.5-15.5); WBC 9.8 k/uL (3.8-10.6)
[2023-01-13 03:08] LABS: African American GFR (CKD) >90 (>60 ml/min/1.73 sqM); Anion Gap 7 mmol/L; Blood Urea Nitrogen 15 mg/dL (7-17); Calcium 6.9 mg/dL (8.4-10.2); Carbon Dioxide 19 mmol/L (22-30); Chloride 108 mmol/L (98-107); Glucose 85 mg/dL (74-99); Non-African American GFR(CKD) 85 (>60 ml/min/1.73 sqM); Potassium 4.7 mmol/L (3.5-5.1); Sodium 134 mmol/L (137-145)
[2023-01-13] MEDS: HEPARIN SOD,PORK IN 0.45% NACL 25,000 UNIT in 0.45% NACL 1 250ML.BAG IV SCH ×2 (03:30→18:37)
[2023-01-13] MEDS: PANTOPRAZOLE 40 MG TABLET PO SCH (06:41)
[2023-01-13] MEDS: LEVOTHYROXINE 50 MCG TAB PO SCH (06:41)
[2023-01-13] MEDS ORDERED: METOPROLOL SUCCINATE (ER) 25 MG TAB.ER.24H PO SCH (09:00)
[2023-01-13] MEDS: SERTRALINE 100 MG TAB PO SCH (09:02)
[2023-01-13] MEDS: MILI PO SCH (09:02)
[2023-01-13] MEDS: buPROPion SR 150 MG TABLET.ER PO SCH (09:02)
[2023-01-13] MEDS: MONTELUKAST 10 MG TAB PO SCH (09:02)
[2023-01-13] MEDS: cloNIDine HCL 0.1 MG TAB PO SCH ×3 (09:02→16:32)
[2023-01-13] MEDS: ATORVASTATIN 20 MG TAB PO SCH (09:02)
[2023-01-13] MEDS: LORATADINE 10 MG TAB PO SCH (09:02)
[2023-01-13] MEDS: clonazePAM 1 MG TAB PO SCH ×2 (09:02→20:43)
[2023-01-13] MEDS: HYDROcodone/APAP 5-325MG 1 EACH TAB PO PRN ×2 (10:33→20:44)
--- NOTE | 2023-01-13 12:38 | CA ---
Transthoracic Echo Report Name: Cely Delatorre Age: 42 Gender: F : 1980 Exam Date: 01/13/2023 11:23 Exam Location: [facility] Ht (in): 60 Wt (lb): 160 Ordering Physician: Kaveh Ellis MD ([id number]) Attending/Referring Phys: Caleb HUDDLESTON Scale Tester Tiffanie Abdi RDCS Procedure CPT: Indications: pulmonary HTN Cardiac Hx: Technical Quality: Fair Contrast 1: Total Dose (mL): Contrast 2: Total Dose (mL): MEASUREMENTS (Male / Female) Normal Values 2D ECHO LV Diastolic Diameter PLAX 3.2 cm 4.2 - 5.9 / 3.9 - 5.3 cm LV Systolic Diameter PLAX 1.9 cm IVS Diastolic Thickness 1.2 cm 0.6 - 1.0 / 0.6 - 0.9 cm LVPW Diastolic Thickness 1.1 cm 0.6 - 1.0 / 0.6 - 0.9 cm LV Relative Wall Thickness 0.7 DOPPLER TR Peak Velocity 398.0 cm/s TR Peak Gradient 63.4 mmHg Right Ventricular Systolic Press 77.3 mmHg FINDINGS Left Ventricle Limited study. Left ventricular cavity size normal. Left ventricular wall thickness normal. Left ventricular ejection fraction is estimated at 50-55 %. Right Ventricle Severe pulmonary hypertension. Right ventricular systolic pressure estimated at 77.3 mm hg. No right heart strain noted, TAPSE 22 mm, RV' 11cm/sec Right Atrium Left Atrium Mitral Valve Aortic Valve Tricuspid Valve Severe tricuspid regurgitation. Pulmonic Valve Pericardium No pericardial effusion. Aorta CONCLUSIONS As above Previewed by: Dr. Jeannette Reynolds MD (Electronically Signed) Final Date: 13 Jan 2023 12:37
--- NOTE | 2023-01-13 14:55 | PN ---
PROGRESS NOTE SUBJECTIVE: Cely is a 42-year-old lady who is admitted to hospital with large pulmonary embolism with evidence of RV strain and severe pulmonary hypertension with an RVSP of 55. The patient underwent pulmonary arterial thrombectomy. Right heart hemodynamics revealed a PA pressure of 67/18. This morning, she is feeling better. Cough is better. OBJECTIVE: GENERAL: She is not short of breath. VITAL SIGNS: Her O2 saturation is 97%. Heart rate is between 90 and 100, blood pressure is 110/78, respiratory rate is 16. NECK: There is no jugular venous distention. Carotid upstroke is normal. CHEST: Reveals good air entry bilaterally. HEART: Reveals first and second heart sounds. No gallop. EXTREMITIES: Exam of extremities did not reveal any edema. LABORATORY DATA: Labs show a hemoglobin of 11, platelet count is 174, potassium is 4.7. Creatinine 0.8. ASSESSMENT AND PLAN: Large pulmonary embolism, status post pulmonary thrombectomy using an Inari catheter. The patient shows some clinical improvement compared to baby by yesterday. I will continue the patient on heparin per pulmonary embolism protocol. Transfer her out of ICU. Repeat an echo on her tomorrow and we will switch her to Xarelto and hopefully home over the next 2 days. MMODL / IJN: [id number] /
--- NOTE | 2023-01-13 15:55 | P.CONS ---
History of Present Illness - Reason for Consult Consult date: 01/13/23 DVT/PE Requesting physician: Charly Joshi - Chief Complaint SOB - History of Present Illness Patient is a 42-year-old female with a significant history of DVT. We were consulted for DVT/PE. She is a patient of Dr. Hunt who treated her in the past for hx of DVT, but was lost to follow up in 08/2015. She was dx with LLE DVT in 2012, when on oral contraceptives. She was coumadin for about 2 years. We initially seen her on consult in 05/14 with DVT of LLE. She was discharged from the ER on Lovenox and coumadin. A hypercoaguable w/u was done, which was negative, other than a heterozygous MTHFR C677T mutation, which is NOT associated with increased risk. Patient presented to the emergency room for persisting shortness of breath and cough over the last couple weeks. She reports she was coughing while on the toilet and had a syncopal episode. Upon presentation d-dimer was elevated at 3.66. Coags normal. Bilateral venous Dopplers revealed DVT of right and left lower extremity. CTA chest revealed positive for bilateral pulmonary emboli with moderate overall burden including the presence of a nonocclusive saddle embolus. CT veins are concerning for developing right heart strain. Scattered groundglass changes in the upper to mid lungs including more confluent airspace disease posterior left upper lobe. Which could represent areas of developing pulmonary infarct versus multifocal pneumonia. 1.8 cm right hilar lymph node. Patient has been started on IV heparin. WBC 9.8, hemoglobin 11.0, weight is 172,000. Patient reports that she is still on control, taking progesterone. Patient reports that her PCP recently discontinued xarelto. She was initially started at 10mg and was decreased to 5mg before discontinuation. She reports that she was going to get a second opinion but never got a chance to and has been taking Xarelto 2.5 mg intermittently. Patient denies any recent hospitalization, surgery, or having COVID. Denies any history of autoimmune disorders. Patient was instructed to discontinue oral control as this puts her at increased risk for blood clots. She does not have CARD MAKER at this time. It was recommended to patient that she would consider nonhormonal IUD. HOUSEHOLD REFRIGERATION MECHANIC referral will be placed. Review of Systems 10 point ROS is negative except as stated in HPI Past Medical History Past Medical History: Deep Vein Thrombosis (DVT) History of Any Multi-Drug Resistant Organisms: None Reported Past Surgical History: No Surgical Hx Reported Past Anesthesia/Blood Transfusion Reactions: No Reported Reaction Past Psychological History: Anxiety, Depression Smoking Status: Never smoker Past Alcohol Use History: Rare Past Drug Use History: None Reported - Past Family History Father Family Medical History: Cancer, CVA/TIA, Hyperlipidemia, Hypertension, Myocardial Infarction ([place]) Mother Family Medical History: Cancer, Hyperlipidemia, Hypertension Medications and Allergies Home Medications Medication Instructions Recorded Confirmed Type Levothyroxine Sodium [Levoxyl] 50 mcg PO DAILY 05/15/15 01/12/23 History Montelukast Sodium [Singulair] 10 mg PO DAILY 05/15/15 01/12/23 History Nitrofurantoin Monohyd/M-Cryst 100 mg PO VALLEJO 05/15/15 01/12/23 History [Macrobid] Sertraline HCl [Zoloft] 200 mg PO DAILY 05/15/15 01/12/23 History Zolpidem Tartrate [Ambien] 10 mg PO HS PRN 05/15/15 01/12/23 History Atorvastatin [Lipitor] 20 mg PO DAILY 07/01/22 01/12/23 History Butalb/APAP/Caff 50-325-40Mg 1 - 2 tab PO Q4H PRN 07/01/22 01/12/23 History [Fioricet 50-325-40] Loratadine [Claritin] 10 mg PO DAILY 07/01/22 01/12/23 History Omeprazole 40 mg PO DAILY 07/01/22 01/12/23 History Rivaroxaban [Xarelto] 2.5 mg PO DIRECTED 07/01/22 01/12/23 History buPROPion SR [Wellbutrin SR] 150 mg PO DAILY 07/01/22 01/12/23 History cloNIDine HCL [Catapres] 0.1 mg PO AC-TID 07/01/22 01/12/23 History Benzonatate [Tessalon Perles] 100 mg PO TID PRN 01/12/23 01/12/23 History Cyclobenzaprine [Flexeril] 10 mg PO TID PRN 01/12/23 01/12/23 History Doxycycline Hyclate 100 mg PO BID PRN 01/12/23 01/12/23 History Fluticasone Nasal [place] [Flonase 1 - 2 spray EA NOSTRIL DAILY PRN 01/12/23 01/12/23 History Nasal [place]] Metoprolol Succinate (ER) [Toprol 25 mg PO DAILY 01/12/23 01/12/23 History Xl] Naproxen [Naprosyn] 500 mg PO BID PRN 01/12/23 01/12/23 History clonazePAM [KlonoPIN] 1 mg PO BID 01/12/23 01/12/23 History norgestimate-ethinyl estradioL 1 tab PO DAILY 01/12/23 01/12/23 History [Marli 0.25-0.035 mg Tablet] Allergies Allergy/AdvReac Type Severity Reaction Status Date / Time Sulfa (Sulfonamide AdvReac Nausea & Verified 01/12/23 08:18 Antibiotics) Vomiting & Diarrhea Physical Exam Vitals: Vital Signs Temp Pulse Pulse Resp BP BP Pulse Ox 01/13/23 09:00 101 H 15 109/78 97 01/13/23 08:30 93 19 134/115 96 01/13/23 08:01 92 L 01/13/23 08:00 102 H 10 L 123/88 96 01/13/23 07:30 96 11 L 110/76 96 01/13/23 07:00 85 19 98/70 96 01/13/23 06:30 94 14 99/78 95 01/13/23 06:00 80 18 94 L 01/13/23 05:00 84 20 94 L 01/13/23 04:00 85 25 H 92 L 01/13/23 03:00 90 17 95 01/13/23 02:00 90 19 93 L 01/13/23 01:00 89 21 126/106 96 01/13/23 00:00 92 20 113/88 95 01/12/23 23:00 97 18 94 L 01/12/23 22:00 26 H 120/84 94 L 01/12/23 21:00 103 H 21 110/87 95 01/12/23 20:34 96 15 110/87 96 01/12/23 20:00 98.7 F 96 19 105/94 94 L 01/12/23 19:00 110 H 22 111/73 92 L 01/12/23 18:00 95 17 101/80 95 01/12/23 17:00 89 14 115/92 93 L 01/12/23 16:20 95 15 115/92 95 01/12/23 16:10 92 13 115/92 95 01/12/23 16:00 98.2 F 92 24 96/83 95 01/12/23 15:54 98 18 94 L 01/12/23 15:23 93 18 112/83 97 01/12/23 15:12 96 18 104/79 96 01/12/23 14:53 100 16 104/79 96 01/12/23 12:22 97.7 F 96 18 107/62 95 01/12/23 11:44 97 18 114/74 95 01/12/23 10:00 115 H 20 110/91 95 Intake and Output 01/12/23 01/13/23 01/13/23 22:59 06:59 14:59 Intake Total 673.6 253.498 860 Output Total 1500 1000 Balance -826.4 253.498 -140 Intake: IV 195 180 0.9 195 180 Intake, IV Titration 28.6 73.498 Amount Heparin Sod,Pork in 0.45% 28.6 73.498 NaCl 25,000 unit In 0.45 % NaCl 1 250ml.bag @ 18 UNITS/KG/HR 13.064 mls/hr IV .[id number] [facility] Rx#: [id number] Oral 450 860 Output: Urine 1500 1000 Other: Voiding Method External Catheter Toilet Bedside Commode Weight 72.575 kg 72.8 kg - Constitutional General appearance: average body habitus, no acute distress - EENT Eyes: anicteric sclerae, EOMI ENT: hearing grossly normal - Respiratory Respiratory: bilateral: CTA - Cardiovascular Rhythm: regular Heart sounds: normal: S1, S2 Abnormal Heart Sounds: no systolic murmur, no diastolic murmur, no rub, no S3 Gallop, no S4 Gallop, no click, no other - Gastrointestinal General gastrointestinal: soft, no tenderness - Integumentary Integumentary: normal - Neurologic Neurologic: CNII-XII intact - Musculoskeletal Musculoskeletal: strength equal bilaterally - Psychiatric Psychiatric: A&O x's 3, appropriate affect, intact judgment & insight Results CBC & Chem 7: 01/13/23 02:30 01/13/23 02:30 Labs: Abnormal Lab Results - Last 24 Hours (Table) 01/12/23 01/12/23 01/13/23 Range/Units 09:27 16:55 02:24 RBC (3.80-5.40) m/uL Hgb (11.4-16.0) gm/dL APTT 128.6 H* >200.0 H* 52.0 H (22.0-30.0) sec Sodium (137-145) mmol/L Chloride (98-107) mmol/L Carbon Dioxide (22-30) mmol/L Calcium (8.4-10.2) mg/dL 01/13/23 01/13/23 Range/Units 02:30 02:30 RBC 3.63 L (3.80-5.40) m/uL Hgb 11.0 L (11.4-16.0) gm/dL APTT (22.0-30.0) sec Sodium 134 L (137-145) mmol/L Chloride 108 H (98-107) mmol/L Carbon Dioxide 19 L (22-30) mmol/L Calcium 6.9 L (8.4-10.2) mg/dL CT scan - chest: report reviewed Venous US: report reviewed Assessment and Plan (1) DVT (deep venous thrombosis) Current Visit: Yes Status: Acute Priority: High Code(s): I82.409 - ACUTE EMBOLISM AND THOMBOS UNSP DEEP VN UNSP LOWER EXTREMITY SNOMED Code(s): 795551712 (2) Pulmonary embolus Current Visit: Yes Status: Acute Priority: High Code(s): I26.99 - OTHER PULMONARY EMBOLISM WITHOUT ACUTE COR PULMONALE SNOMED Code(s): 19747845 Plan: PE/DVT -Bilateral venous Dopplers revealed DVT of right and left lower extremity. CTA chest revealed positive for bilateral pulmonary emboli with moderate overall burden including the presence of a nonocclusive saddle embolus. CT veins are concerning for developing right heart strain. Scattered groundglass changes in the upper to mid lungs including more confluent airspace disease posterior left upper lobe. Which could represent areas of developing pulmonary infarct versus multifocal pneumonia. 1.8 cm right hilar lymph node. Patient has been started on IV heparin. 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 -Patient was instructed to discontinue oral control as this puts her at increased risk for blood clots. She does not have CARD MAKER at this time. It was recommended to patient that she would consider non-hormonal IUD. HOUSEHOLD REFRIGERATION MECHANIC referral will be placed. -Will restart patient on xarelto 15mg BID x 3 weeks, then 20mg daily, Would recommend treatment for minimum 6 months. Will f/u with patient outpatient for further evaluation and monitoring attests: I performed H&P and developed impression and plan of care for patient, discussed with dictator. I agree with dictated note, documented as a scribe.
[2023-01-13] MEDS: ZOLPIDEM 5 MG TAB PO PRN ×2 (20:43)
[2023-01-14] MEDS: HEPARIN SOD,PORK IN 0.45% NACL 25,000 UNIT in 0.45% NACL 1 250ML.BAG IV SCH (03:15)
[2023-01-14] MEDS: PANTOPRAZOLE 40 MG TABLET PO SCH (06:30)
[2023-01-14] MEDS: LEVOTHYROXINE 50 MCG TAB PO SCH (06:30)
[2023-01-14 08:06] LABS: Basophils % (A) 0 %; Eosinophils # (A) 0.3 k/uL (0-0.7); Eosinophils % (A) 5 %; HCT 33.1 % (34.0-46.0); HGB 10.8 gm/dL (11.4-16.0); Hypochromasia Slight; Lymphocytes # (A) 2.2 k/uL (1.0-4.8); Lymphocytes % (A) 31 %; MCH 30.4 pg (25.0-35.0); MCHC 32.6 g/dL (31.0-37.0); MCV 93.3 fL (80.0-100.0); Mean Platelet Volume 8.1; Monocytes # (A) 0.3 k/uL (0-1.0); Monocytes % (A) 4 %; Neutrophils # (A) 4.2 k/uL (1.3-7.7); Neutrophils % (A) 59 %; Platelet Count 181 k/uL (150-450); RBC 3.54 m/uL (3.80-5.40); RDW 14.6 % (11.5-15.5); WBC 7.1 k/uL (3.8-10.6)
[2023-01-14 08:19] LABS: African American GFR (CKD) >90 (>60 ml/min/1.73 sqM); Anion Gap 7 mmol/L; Blood Urea Nitrogen 14 mg/dL (7-17); Calcium 7.5 mg/dL (8.4-10.2); Carbon Dioxide 21 mmol/L (22-30); Chloride 108 mmol/L (98-107); Glucose 85 mg/dL (74-99); Non-African American GFR(CKD) 85 (>60 ml/min/1.73 sqM); Potassium 4.4 mmol/L (3.5-5.1); Sodium 136 mmol/L (137-145)
[2023-01-14] MEDS: HYDROcodone/APAP 5-325MG 1 EACH TAB PO PRN ×2 (09:36→20:23)
[2023-01-14] MEDS: MONTELUKAST 10 MG TAB PO SCH (09:37)
[2023-01-14] MEDS: ATORVASTATIN 20 MG TAB PO SCH (09:37)
[2023-01-14] MEDS: clonazePAM 1 MG TAB PO SCH ×2 (09:37→20:23)
[2023-01-14] MEDS: SERTRALINE 100 MG TAB PO SCH (09:37)
[2023-01-14] MEDS: LORATADINE 10 MG TAB PO SCH (09:37)
[2023-01-14] MEDS: buPROPion SR 150 MG TABLET.ER PO SCH (09:37)
[2023-01-14] MEDS: METOPROLOL SUCCINATE (ER) 25 MG TAB.ER.24H PO SCH (10:26)
[2023-01-14] MEDS: MILI PO SCH (10:26)
--- NOTE | 2023-01-14 11:59 | P.PN ---
Subjective Progress Note Date: 01/14/23 Principal diagnosis: PE/DVT At today's visit patient is resting comfortably in bed. Patient reports she is experiencing mild shortness of breath but reports improvement. She also reports mild lower extremity edema. Patient denies pain. No other reported complaints at this time. Objective - Vital Signs Vital signs: Vital Signs Temp 97.5 F L 01/14/23 09:35 Pulse 84 01/14/23 09:35 Resp 20 01/14/23 09:35 BP 97/61 01/14/23 09:35 Pulse Ox 93 L 01/14/23 09:35 FiO2 Intake & Output 01/13/23 01/14/23 01/14/23 18:59 06:59 18:59 Intake Total 1131.431 87.893 540 Output Total 1500 Balance -368.569 87.893 540 Intake: Intake, IV Titration 153.431 87.893 Amount Heparin Sod,Pork in 0.45% 153.431 87.893 NaCl 25,000 unit In 0.45 % NaCl 1 250ml.bag @ 18 UNITS/KG/HR 13.064 mls/hr IV .Q19H9M [facility] Rx#: [id number] Oral 978 540 Output: Urine 1500 Other: Voiding Method Toilet Toilet Toilet Bedside Commode Bedside Commode Bedside Commode - Constitutional General appearance: Present: average body habitus, no acute distress - EENT Eyes: Present: anicteric sclerae, EOMI ENT: Present: hearing grossly normal - Respiratory Details: breathing is even and unlabored - Cardiovascular Details: skin warm and dry - Peripheral edema leg Peripheral Edema: bilateral: 1+ (R>L) - Integumentary Integumentary: Present: normal - Neurologic Neurologic: Present: CNII-XII intact - Musculoskeletal Musculoskeletal: Present: strength equal bilaterally - Labs CBC & Chem 7: 01/14/23 07:02 01/14/23 07:02 Labs: Abnormal Lab Results - Last 24 Hours (Table) 01/14/23 01/14/23 01/14/23 Range/Units 07:02 07:02 07:02 RBC 3.54 L (3.80-5.40) m/uL Hgb 10.8 L (11.4-16.0) gm/dL Hct 33.1 L (34.0-46.0) % APTT 38.7 H (22.0-30.0) sec Sodium 136 L (137-145) mmol/L Chloride 108 H (98-107) mmol/L Carbon Dioxide 21 L (22-30) mmol/L Calcium 7.5 L (8.4-10.2) mg/dL Assessment and Plan (1) DVT (deep venous thrombosis) Current Visit: Yes Status: Acute Priority: High Code(s): I82.409 - ACUTE EMBOLISM AND THOMBOS UNSP DEEP VN UNSP LOWER EXTREMITY SNOMED Code(s): 685598783 (2) Pulmonary embolus Current Visit: Yes Status: Acute Priority: High Code(s): I26.99 - OTHER PULMONARY EMBOLISM WITHOUT ACUTE COR PULMONALE SNOMED Code(s): 93119961 Plan: PE/DVT -Bilateral venous Dopplers revealed DVT of right and left lower extremity. CTA chest revealed positive for bilateral pulmonary emboli with moderate overall burden including the presence of a nonocclusive saddle embolus. CT veins are concerning for developing right heart strain. Scattered groundglass changes in the upper to mid lungs including more confluent airspace disease posterior left upper lobe. Which could represent areas of developing pulmonary infarct versus multifocal pneumonia. 1.8 cm right hilar lymph node. Patient has been started on IV heparin. 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 -Patient was instructed to discontinue oral control as this puts her at increased risk for blood clots. She does not have AUTOMATION ANALYST at this time. It was recommended to patient that she should consider non-hormonal IUD. ACID CRANE OPERATOR referral will be placed. -Will restart patient on xarelto 15mg BID x 3 weeks, then 20mg daily, Would recommend treatment for minimum 6 months. Will f/u outpatient for further evaluation and monitoring. Xarelto sent to outpatient pharmacy. Pt will begin transition to DAOC today, heparin d/c
[2023-01-14] MEDS: BENZONATATE 100 MG CAP PO PRN ×2 (12:28→20:23)
[2023-01-14] MEDS: RIVAROXABAN 15 MG TAB PO SCH ×2 (12:28→20:23)
--- NOTE | 2023-01-14 13:10 | P.PN ---
Subjective Progress Note Date: 01/14/23 HISTORY OF PRESENT ILLNESS: Patient examined this morning at the bedside. Patient is status post Inari thrombectomy bilateral pulmonary arteries with Dr. Kirk. Patient remains on IV heparin this morning. Patient denies chest pain or pressure. She does report continued shortness of breath that is worse with ambulation to the bathroom. Patient's blood pressure was low overnight and her Catapres and metoprolol were discontinued. Patient's blood pressure this morning stable with a recent reading of 122/89. PHYSICAL EXAM: VITAL SIGNS: Reviewed. GENERAL: Well-developed in no acute distress. NECK: Supple. No JVD or thyromegaly LUNGS: Respirations even and unlabored. Lungs essentially clear to auscultation bilaterally. HEART: Regular rate and rhythm. S1 and S2 heard. EXTREMITIES: Normal range of motion. No clubbing or cyanosis. Peripheral pul ses intact. No lower extremity edema ASSESSMENT: Large pulmonary embolism with evidence of RV strain and severe pulmonary hypertension, status post Inari thrombectomy bilateral pulmonary arteries Bilateral lower extremity DVT PLAN: Discontinue IV heparin. Transition patient to Xarelto 15 mg twice a day for 21 days then decrease to 20 mg daily Continue to hold Catapres Resume home dose of metoprolol Continue to monitor blood pressure Continue to monitor patient for a minimum of an additional 24 hours Further recommendations pending patient's course Nurse practitioner note has been reviewed by physician. Signing provider agrees with the documented findings, assessment, and plan of care. Objective - Vital Signs Vital signs: Vital Signs Temp 97.7 F 01/14/23 12:00 Pulse 79 01/14/23 12:00 Resp 18 01/14/23 12:00 BP 122/89 01/14/23 12:00 Pulse Ox 96 01/14/23 12:00 FiO2 Intake & Output 01/13/23 01/14/23 01/14/23 18:59 06:59 18:59 Intake Total 1131.431 87.893 1080 Output Total 1500 Balance -368.569 87.893 1080 Intake: Intake, IV Titration 153.431 87.893 Amount Heparin Sod,Pork in 0.45% 153.431 87.893 NaCl 25,000 unit In 0.45 % NaCl 1 250ml.bag @ 18 UNITS/KG/HR 13.064 mls/hr IV .Q19H9M [facility] Rx#: [id number] Oral 978 1080 Output: Urine 1500 Other: Voiding Method Toilet Toilet Toilet Bedside Commode Bedside Commode Bedside Commode - Labs CBC & Chem 7: 01/14/23 07:02 01/14/23 07:02 Labs: Abnormal Lab Results - Last 24 Hours (Table) 01/14/23 01/14/23 01/14/23 Range/Units 07:02 07:02 07:02 RBC 3.54 L (3.80-5.40) m/uL Hgb 10.8 L (11.4-16.0) gm/dL Hct 33.1 L (34.0-46.0) % APTT 38.7 H (22.0-30.0) sec Sodium 136 L (137-145) mmol/L Chloride 108 H (98-107) mmol/L Carbon Dioxide 21 L (22-30) mmol/L Calcium 7.5 L (8.4-10.2) mg/dL
[2023-01-14] MEDS: ZOLPIDEM 5 MG TAB PO PRN (23:54)
--- NOTE | 2023-01-15 04:10 | PN ---
PROGRESS NOTE DATE OF SERVICE: 01/14/2023 CHIEF COMPLAINT: Status post pulmonary emboli. HISTORY OF PRESENT ILLNESS: This lady is doing little bit better. She is a little bit less short of breath and she is coughing less. It is interesting that she has seen hematology in the past after she had 1 or 2 blood clots in the left leg. At that time, she was worked up for hypercoagulable state and she was negative for the usual etiologies. This would leave her control pills as a likely source of her venous clotting issues. She was told several years ago by Hematology to stop control pills and use an IUD and she has not done this. PHYSICAL EXAMINATION: CHEST: Clear. CARDIAC: Normal. ABDOMEN: Soft, nontender. IMPRESSION: 1. Status post pulmonary emboli. 2. Status post DVTs of the left lower extremity. 3. Pulmonary hypertension. PLAN: Continue with recovery and she can probably go home soon on anticoagulation. Hematology is recommending that she now stay on this for life. MMODL / IJN: [id number] /
--- NOTE | 2023-01-15 04:25 | PN ---
PROGRESS NOTE DATE OF SERVICE: 01/13/2023 CHIEF COMPLAINT: Pulmonary emboli. HISTORY OF PRESENT ILLNESS: This is a lady who is doing better. She is feeling a lot better. She has undergone a procedure to remove the saddle embolus. She is not particularly short of breath, but she does have a persistent dry, tickly cough. PHYSICAL EXAMINATION: VITAL SIGNS: Blood pressure is 82/60 with a pulse of 101 and regular. Respirations are 35. GENERAL: She appears to be comfortable and in no acute distress. SKIN: Color is normal. SKIN: Warm, dry. CHEST: Clear. CARDIAC: Normal. There are no rubs. She did have a tachycardia. IMPRESSION: Status post pulmonary emboli. PLAN: Continue with anticoagulation and increase activity. MMODL / IJN: [id number] /
[2023-01-15] MEDS: LEVOTHYROXINE 50 MCG TAB PO SCH (06:45)
[2023-01-15] MEDS: PANTOPRAZOLE 40 MG TABLET PO SCH (06:45)
[2023-01-15] MEDS: RIVAROXABAN 15 MG TAB PO SCH ×2 (09:29→20:15)
[2023-01-15] MEDS: MONTELUKAST 10 MG TAB PO SCH (09:29)
[2023-01-15] MEDS: ATORVASTATIN 20 MG TAB PO SCH (09:30)
[2023-01-15] MEDS: METOPROLOL SUCCINATE (ER) 25 MG TAB.ER.24H PO SCH (09:30)
[2023-01-15] MEDS: LORATADINE 10 MG TAB PO SCH (09:30)
[2023-01-15] MEDS: clonazePAM 1 MG TAB PO SCH ×2 (09:30→20:15)
[2023-01-15] MEDS: SERTRALINE 100 MG TAB PO SCH (09:30)
[2023-01-15] MEDS: MILI PO SCH (09:58)
[2023-01-15] MEDS: buPROPion SR 150 MG TABLET.ER PO SCH (09:58)
--- NOTE | 2023-01-15 12:46 | US ---
EXAMINATION TYPE: US lower ext pseudo artery RT DATE OF EXAM: 01/15/2023 COMPARISON: NONE CLINICAL INDICATION: Female, 42 years old with history of R groin; Pt had pulmonary arterial thrombec roland with right groin approach/ pt having pain and lump right groin EXAM PERFORMED: Grayscale and color Doppler duplex imaging performed of the groin SIDE PERFORMED: Right Color and Waveform Doppler performed to assess for the presence of pseudoaneurysm; Is there ultrasound evidence of a pseudoaneurysm: No Is there evidence of AV shunting: No Is there a fluid collection present: Yes, superficial fluid collection at puncture site= 2.2 x 0.6 x 1.1 cm IMPRESSION: No diagnostic evidence of pseudoaneurysm. There is a small superficial fluid collection near the punc ture site measuring 2.2 x 1.1 cm most likely on the basis of a small hematoma.
--- NOTE | 2023-01-15 13:57 | CDI ---
Documentation Clarification Form Date: 01/15/2023 1:10:34 PM From: Josefina Contreras RN, CCDS Admit Date: 01/12/2023 3:57:00 AM Patient Name: Cely Delatorre Visit Number: [id number] Discharge Date: ATTENTION: The Clinical Documentation Specialists (CDI) and [facility] Coding Staff appreciate your assistance in clarifying documentation. Please respond to the clarification below the line at the bottom and electronically sign. The CDI & [facility] Coding staff will review the response and follow-up if needed. Please note: Queries are made part of the Legal Health Record. If you have any questions, please contact the author of this message via ITS. Dr. Kaveh Ellis There is documentation of large pulmonary embolism with evidence of RV strain and severe pulmonary hypertension with an RVSP OF 55. Additional diagnosis that is appropriate for this patient? History/Risk Factors: DVT Clinical Indicators: 42-year-old female present to ED with complaints of coughing, shortness of breath and a syncopal episode. 01/12 CTA: Positive for bilateral pulmonary emboli with moderate overall burden including the presence of a nonocclusive saddle embolus. However CT finding are concerning for developing right heart strain. 01/12 VS: 104/74 120 19 98 95 % RA 01/12 Labs: WBC 19.5 D-Dimer 3.66, Lactic acid 3.8, Troponin 0.036, 0.034, 0.013 01/12 Venous Doppler: Right Leg: +positive for DVT right femoral vein distal extending into popliteal vein. Left Leg: *positive for DVT, thready flow with partial compression left EIV extending into popliteal vein 01/12 Procedure: Right heart catheterization, Pulmonary arterial thrombectomy with Inari Catheter, pulmonary angiogram 01/12 ECHO: Left ventricular EF 45-50%. Right ventricle: mild right ventricular dilation. Moderately reduced right ventricular global systolic function. Severe pulmonary hypertension. Treatment: Heparin per pulmonary embolism protocol 5-01/14) Monitor PT/INR per protocol. .9NS 1,000 IV Bolus 01/12 Xarelto 15 MG PO BID 01/14 -01/15 Toprol XL 25 MG PO Daily 01/14- Can you please further clarify pulmonary embolism with evidence of RV strain and severe pulmonary hypertension? [ ] Pulmonary Embolism, Saddle, with Acute cor pulmonale, [ ] Pulmonary Embolism, with Acute cor pulmonale [ ] Pulmonary Embolism without Acute cor pulmonale [ ] Other, please specify [ ] Unable to determine (Template Last Revised: October 2020) MTDD
--- NOTE | 2023-01-15 15:05 | P.PN ---
Subjective Progress Note Date: 01/15/23 Principal diagnosis: PE/DVT At today's visit patient is resting comfortably in bed. Patient reports continued improvement in breathing. Denies shortness of breath at this time. Denies chest pain. Patient reports she woke up today and noticed swelling and bruising of right groin at the insertion site from recent thromboectomy. Patient denies lower extremity pain. No other reported complaints at this time Objective - Vital Signs Vital signs: Vital Signs Temp 98 F 01/15/23 12:00 Pulse 78 01/15/23 12:00 Resp 18 01/15/23 12:00 BP 124/82 01/15/23 12:00 Pulse Ox 93 L 01/15/23 12:00 FiO2 21 01/15/23 08:08 Intake & Output 01/14/23 01/15/23 01/15/23 18:59 06:59 18:59 Intake Total 1620 Balance 1620 Intake: Oral 1620 Other: Voiding Method Toilet Toilet Toilet Bedside Commode Bedside Commode Bedside Commode - Constitutional General appearance: Present: average body habitus, no acute distress - EENT Eyes: Present: anicteric sclerae, EOMI ENT: Present: hearing grossly normal - Respiratory Details: Breathing is even and unlabored - Cardiovascular Details: skin is warm and dry - Integumentary Integumentary Comment(s): hematoma noted to right groin - Neurologic Neurologic Comment(s): grossly intact - Musculoskeletal Musculoskeletal: Present: strength equal bilaterally - Psychiatric Psychiatric: Present: A&O x's 3, appropriate affect, intact judgment & insight - Labs CBC & Chem 7: 01/14/23 07:02 01/14/23 07:02 Assessment and Plan (1) DVT (deep venous thrombosis) Current Visit: Yes Status: Acute Priority: High Code(s): I82.409 - ACUTE EMBOLISM AND THOMBOS UNSP DEEP VN UNSP LOWER EXTREMITY SNOMED Code(s): 831683857 (2) Pulmonary embolus Current Visit: Yes Status: Acute Priority: High Code(s): I26.99 - OTHER PULMONARY EMBOLISM WITHOUT ACUTE COR PULMONALE SNOMED Code(s): 28090038 Plan: PE/DVT -Bilateral venous Dopplers revealed DVT of right and left lower extremity. CTA chest revealed positive for bilateral pulmonary emboli with moderate overall burden including the presence of a nonocclusive saddle embolus. CT veins are concerning for developing right heart strain. Scattered groundglass changes in the upper to mid lungs including more confluent airspace disease posterior left upper lobe. Which could represent areas of developing pulmonary infarct versus multifocal pneumonia. 1.8 cm right hilar lymph node. Patient has been started on IV heparin. 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 -Patient was instructed to discontinue oral control as this puts her at increased risk for blood clots. She does not have OVERNIGHT CAREGIVER at this time. It was recommended to patient that she should consider non-hormonal IUD. PROTECTIVE SIGNAL OPERATOR referral will be placed. -Will restart patient on xarelto 15mg BID x 3 weeks, then 20mg daily, Would recommend treatment for minimum 6 months. Will f/u outpatient for further evaluation and monitoring. Xarelto sent to outpatient pharmacy. She has been transitioned to xarelto 15 mg BID
[2023-01-15] MEDS: HYDROcodone/APAP 5-325MG 1 EACH TAB PO PRN (15:29)
[2023-01-15] MEDS: BENZONATATE 100 MG CAP PO PRN (20:15)
--- NOTE | 2023-01-15 22:54 | PN ---
PROGRESS NOTE SUBJECTIVE: Cely is a 42-year-old lady who is admitted to hospital with massive bilateral pulmonary embolism. She is currently on Xarelto 15 mg b.i.d. as pulmonary embolism dose. Unfortunately, repeat transthoracic echo on her shows continued severe pulmonary hypertension with an RVSP of 77 mm. Symptom stephenson, the patient is doing well and is free of symptoms. She developed small hematoma and ecchymosis over the right groin. Due to this, I am holding the discharge today. They had to apply some pressure this morning. I will obtain an ultrasound of the right groin. Hopefully home tomorrow. OBJECTIVE: GENERAL: Comfortable at rest. VITAL SIGNS: Stable. CHEST: Reveals good air entry bilaterally. HEART: Reveals first and second heart sounds. No gallop. EXTREMITIES: Did not reveal any edema. Right groin shows evidence of ecchymosis and a small hematoma. ASSESSMENT: 1. Massive bilateral pulmonary embolism. 2. Severe pulmonary hypertension. PLAN: Continue the Xarelto. Obtain an ultrasound of the right groin to evaluate the right groin hematoma. Hold the discharge today. MMODL / IJN: [id number] /
[2023-01-16] MEDS: LEVOTHYROXINE 50 MCG TAB PO SCH (06:13)
[2023-01-16] MEDS: PANTOPRAZOLE 40 MG TABLET PO SCH (06:13)
[2023-01-16 09:07] LABS: Basophils % (A) 0 %; Eosinophils # (A) 0.3 k/uL (0-0.7); Eosinophils % (A) 5 %; HCT 34.2 % (34.0-46.0); HGB 11.2 gm/dL (11.4-16.0); Lymphocytes # (A) 1.7 k/uL (1.0-4.8); Lymphocytes % (A) 30 %; MCHC 32.7 g/dL (31.0-37.0); MCV 91.7 fL (80.0-100.0); Monocytes # (A) 0.3 k/uL (0-1.0); Monocytes % (A) 6 %; Neutrophils # (A) 3.5 k/uL (1.3-7.7); Neutrophils % (A) 58 %; Platelet Count 204 k/uL (150-450); RBC 3.73 m/uL (3.80-5.40); RDW 14.5 % (11.5-15.5); WBC 5.9 k/uL (3.8-10.6)
[2023-01-16 10:23] VITALS: TEMP 97.9
[2023-01-16] MEDS: RIVAROXABAN 15 MG TAB PO SCH (10:23)
[2023-01-16] MEDS: SERTRALINE 100 MG TAB PO SCH (10:23)
[2023-01-16] MEDS: MONTELUKAST 10 MG TAB PO SCH (10:23)
[2023-01-16] MEDS: LORATADINE 10 MG TAB PO SCH (10:23)
[2023-01-16] MEDS: ATORVASTATIN 20 MG TAB PO SCH (10:24)
[2023-01-16] MEDS: METOPROLOL SUCCINATE (ER) 25 MG TAB.ER.24H PO SCH (10:24)
[2023-01-16] MEDS: buPROPion SR 150 MG TABLET.ER PO SCH (10:24)
[2023-01-16] MEDS: clonazePAM 1 MG TAB PO SCH (10:24)
[2023-01-16] MEDS: MILI PO SCH (10:25)
[2023-01-16 11:56] VITALS: PULSE 83; RESP 16
--- NOTE | 2023-01-16 13:28 | P.PN ---
Subjective Progress Note Date: 01/16/23 History of present illness: This is a 42-year-old female patient presented to the hospital due to massive bilateral pulmonary embolism currently on Xarelto 15 mg twice daily. Repeat transthoracic echocardiogram revealed severe pulmonary hypertension with RVSP of 77. Yesterday, patient had hematoma to the right groin area which seems to be stable at this time. Discharge was held to monitor this. Ultrasound of the right groin revealed no evidence of pseudoaneurysm. Small superficial fluid collection near the puncture site measuring 2.2 x 1.1 cm likely basal small hematoma. Patient is doing well does denies having any chest pain or shortness of breath. She states she has been ambulating in her room, no lightheadedness or dizziness. Physical examination: Gen: This is a 42-year-old female. She is requesting bed appears to be in no acute respiratory distress VS: reviewed HEENT: Head is atraumatic, normocephalic. Pupils equal, round. Sclerae is anicteric. LUNGS: Clear to auscultation. No wheezes or rhonchi. No intercostal retractions. HEART: Regular rate and rhythm. No murmur. ABDOMEN: Soft No tenderness. EXTREMITIES: No pedal edema. NEUROLOGICAL: Patient is awake, alert and oriented x3. Assessment: Massive bilateral pulmonary embolism Severe pulmonary hypertension Plan: Continue current dose of Xarelto Patient is cleared for discharge home today. Nurse practitioner note has been reviewed, I agree with documented findings and plan of care. Patient was seen and examined. Objective - Vital Signs Vital signs: Vital Signs Temp 97.8 F 01/16/23 03:43 Pulse 85 01/16/23 03:43 Resp 16 01/16/23 03:43 BP 138/81 01/16/23 03:43 Pulse Ox 95 01/16/23 08:32 FiO2 21 01/15/23 08:08 Intake & Output 01/15/23 01/16/23 01/16/23 18:59 06:59 18:59 Intake Total 118 Balance 118 Intake: Oral 118 Other: Voiding Method Toilet Bedside Commode - Labs CBC & Chem 7: 01/16/23 08:30 01/14/23 07:02 Labs: Abnormal Lab Results - Last 24 Hours (Table) 01/16/23 Range/Units 08:30 RBC 3.73 L (3.80-5.40) m/uL Hgb 11.2 L (11.4-16.0) gm/dL
[2023-01-16 16:47] VITALS: BP 120/82
--- NOTE | 2023-01-18 21:55 | PN ---
PROGRESS NOTE DATE OF SERVICE: 01/12/2023 CHIEF COMPLAINT: Pulmonary embolism. HISTORY OF PRESENT ILLNESS: This lady is doing well. She is not having a great deal of shortness of breath. PHYSICAL EXAMINATION: CHEST: Quite clear. CARDIAC: Normal. ABDOMEN: Soft and nontender. IMPRESSION: Status post pulmonary emboli. PLAN: Progress activity and diet. She can probably go home soon. MMODL / IJN: [id number] /
--- NOTE | 2023-01-19 07:08 | DS ---
DISCHARGE SUMMARY CHIEF COMPLAINT: Shortness of breath and back pain. HISTORY OF PRESENT ILLNESS AND PHYSICAL EXAM: Details of this lady's history and physical can be found in the initial workup. LABORATORY STUDIES: While she is in the hospital, she had laboratory studies, details of which can be found in the laboratory section of her chart. COURSE IN THE HOSPITAL: After admission, she was taken to the cardiac cath tech, where the saddle embolus was removed. Postoperatively, she remained on anticoagulants and slowly improved. Her right upper posterior chest pain disappeared. While in the hospital, she was followed by Pulmonology, Cardiology, and she was also seen by Hematology to rule out hypercoagulable state. As it turned out, she had already gone to see the blueprint processor several years ago after she had a clot in her leg and she was determined not to have any genetic contributors to hypercoagulable state. At that time, she was told to stop control pills, which she has not done. She was improving and it was felt that she could go home on the on Xarelto 15 mg twice a day and aspirin and she will follow up in the office. FINAL DIAGNOSES: 1. Multiple pulmonary emboli. 2. History of deep venous thrombosis of the lower extremities. OPERATION: Retrieval of saddle embolus. CONSULTATIONS: Cardiology, Pulmonology and Hematology. MMODL / IJN: [id number] /
--- NOTE | 2023-01-19 13:14 | CDI ---
Documentation Clarification Form Date: 01/15/2023 1:10:00 PM From: Josefina Contreras Phone: Admit Date: 01/12/2023 3:57:00 AM Patient Name: Cely Delatorre Visit Number: [id number] Discharge Date: 01/16/2023 5:47:00 PM ATTENTION: The Clinical Documentation Specialists (CDI) and [facility] Coding Staff appreciate your assistance in clarifying documentation. Please respond to the clarification below the line at the bottom and electronically sign. The CDI & [facility] Coding staff will review the response and follow-up if needed. Please note: Queries are made part of the Legal Health Record. If you have any questions, please contact the author of this message via ITS. Dr. Kaveh Ellis There is documentation of large pulmonary embolism with evidence of RV strain and severe pulmonary hypertension with an RVSP OF 55. Additional diagnosis that is approperate for this patient? History/Risk Factors: DVT Clinical Indicators: 42-year-old female present to ED with complaints of coughing, shortness of breath and a syncopal episode. 01/12 CTA: Positive for bilateral pulmonary emboli with moderate overall burden including the presence of a nonocclusive saddle embolus. However CT finding are concerning for developing right heart strain. 01/12 VS: 104/74 120 19 98 95 % RA 01/12 Labs: WBC 19.5 D-Dimer 3.66, Lactic acid 3.8, Troponin 0.036, 0.034, 0.013 01/12 Venous Doppler: Right Leg: +positive for DVT right femoral vein distal extending into popliteal vein. Left Leg: *positive for DVT, thready flow with partial compression left EIV extending into popliteal vein 01/12 Procedure: Right heart catheterization, Pulmonary arterial thrombectomy with Inari Catheter, pulmonary angiogram 01/12 ECHO: Left ventricular EF 45-50% . Right ventricle: mild right ventricular dilation. Moderately reduced right ventricular global systolic function. Severe pulmonary hypertension. Treatment: Heparin per pulmonary embolism protocol 5-01/14) Monitor PT/INR per protocol. .9NS 1,000 IV Bolus 01/12 Xarelto 15 MG PO BID 01/14 -01/15 Toprol XL 25 MG PO Daily 01/14- Can you please further clarify pulmonary embolism with evidence of RV strain and severe pulmonary hypertension? [ ] Pulmonary Embolism, Saddle, with Acute cor pulmonale, [ ] Pulmonary Embolism, with Acute cor pulmonale [ ] Pulmonary Embolism without Acute cor pulmonale [ ] Other, please specify [ x ] Unable to determine (Template Last Revised: October 2020) MTDD
== END 2023-01-16 17:47 | disposition home or self-care (01) | DRG 134 ==
LOC: EC 01:41 → 3SCARD 03:57 → 2SICU 14:48 → 3SCARD 01-13 10:48
PROVIDERS: ADMIT Family Medicine; ATTEND Family Medicine
PROC: 02HQ32Z Insertion of Monitoring Device into Right Pulmonary Artery, Percutaneous Approach (ICD-10-PCS; principal; 2023-01-12 14:45)
PROC: B31S1ZZ Fluoroscopy of Right Pulmonary Artery using Low Osmolar Contrast (ICD-10-PCS; principal; 2023-01-12 14:45)
PROC: 02CR3ZZ Extirpation of Matter from Left Pulmonary Artery, Percutaneous Approach (ICD-10-PCS; principal; 2023-01-12 14:45)
PROC: B31T1ZZ Fluoroscopy of Left Pulmonary Artery using Low Osmolar Contrast (ICD-10-PCS; principal; 2023-01-12 14:45)
PROC: 02CQ3ZZ Extirpation of Matter from Right Pulmonary Artery, Percutaneous Approach (ICD-10-PCS; principal; 2023-01-12 14:45)
DX: I26.99 Other pulmonary embolism without acute cor pulmonale (principal); I27.20 Pulmonary hypertension, unspecified; I82.411 Acute embolism and thrombosis of right femoral vein; I82.431 Acute embolism and thrombosis of right popliteal vein; I82.432 Acute embolism and thrombosis of left popliteal vein; Z20.822 Contact with and (suspected) exposure to COVID-19; Z79.01 Long term (current) use of anticoagulants; Z79.890 Hormone replacement therapy; Z79.899 Other long term (current) drug therapy; Z82.49 Family history of ischemic heart disease and other diseases of the circulatory system; Z86.718 Personal history of other venous thrombosis and embolism; F32.A Depression, unspecified; F41.9 Anxiety disorder, unspecified; R79.1 Abnormal coagulation profile; R77.8 Other specified abnormalities of plasma proteins; Z88.2 Allergy status to sulfonamides; Z79.3 Long term (current) use of hormonal contraceptives
CPT/HCPCS: 36415; 37184; 71046; 71275; 80048; 80053; 83605; 84484; 85025; 85379; 85610; 85730; 87636; 93005; 93306; 93308; 93970; 93975; 94760; 96361; 96365; 96366; 99285

== ENCOUNTER → 2024-01-11 | Outpatient (CLI) | payer OTHER ==
--- NOTE | 2024-01-13 10:08 | US ---
EXAMINATION TYPE: US transvaginal DATE OF EXAM: 01/11/2024 COMPARISON: NONE CLINICAL INDICATION: Female, 43 years old with history of N93.9ABNORMAL UTERINE AND VAGINAL BLEEDING, UNSPEC; AUB - menses that lasted one month then menses every other week since; Heavy x about 4 month s with pain; Discontinued control about 1 year ago due to PE; ? History of ovarian cysts. TECHNIQUE: . Transabdominal sonographic images not ordered. Transvaginal sonographic images were me dically necessary. Date of LMP: AUB EXAM MEASUREMENTS: Uterus: 6.6 x 3.8 x 4.5 cm Endometrial Stripe: 1.0 cm Right Ovary: 2.0 x 1.3 x 1.2 cm Left Ovary: 4.1 x 2.0 x 2.2 cm 1. Uterus: Anteverted Nabothian cysts and calcifications within cervix 2. Endometrium: Heterogenous / cystic areas noted 3. Right Ovary: Limited visualization; WNL as visualized 4. Left Ovary: Follicles noted 5. Bilateral Adnexa: wnl 6. Posterior cul-de-sac: wnl IMPRESSION: Nonspecific endometrial heterogeneity and cystic areas seen. Consider direct visualization is indicat ed.
== END | disposition home or self-care (01) ==
LOC: RADUSWWP 15:11
PROVIDERS: ATTEND Family Medicine
DX: N93.9 Abnormal uterine and vaginal bleeding, unspecified (principal)
CPT/HCPCS: 76830